=== PATIENT | female | born 1990 | race African-American/Black ===

== ENCOUNTER 2017-08-13 02:49 | Observation (INO) | payer OTHER, MEDICAID ==
[~2017-08-13] VITALS: Ht 165.1 cm; Wt 63.5 kg
[2017-08-13] MEDS ORDERED: TERBUTALINE SULFATE 1MG/ML VIAL SUBCUT PRN (03:45)
[2017-08-13] MEDS ORDERED: LACTATED RINGERS 1,000 ML IV SCH (03:45)
[2017-08-13 03:58] LABS: CLARITY URINE CLEAR (CLEAR); COLOR URINE YELLOW (YELLOW); GLUCOSE URINE NEGATIVE (NEGATIVE); KETONES URINE NEGATIVE (NEGATIVE); LEUKOCYTE ESTERASE URINE 2+ (NEGATIVE); NITRITE URINE NEGATIVE (NEGATIVE); OCCULT BLOOD URINE NEGATIVE (NEGATIVE); PH URINE 8.5 (4.5-8.0); PROTEIN URINE NEGATIVE (NEGATIVE); SPECIFIC GRAVITY URINE 1.007 (1.005-1.030); UROBILINOGEN URINE 0.2 E.U./dL (0.2-1.0)
[2017-08-13] MEDS ORDERED: CEFAZOLIN SODIUM 500MG/VIAL IV ONE (04:45)
[2017-08-13] MEDS ORDERED: CEFAZOLIN 2,000 MG in DEXT 5% WATER 100 ML IV SCH (05:00)
[2017-08-13] MEDS ORDERED: PNV11TAB PO (06:20)
== END 2017-08-13 06:50 | disposition home or self-care (01) ==
LOC: L&D 02:49
PROVIDERS: ADMIT Obstetrics & Gynecology; ATTEND Obstetrics & Gynecology
DX: O26.893 Other specified pregnancy related conditions, third trimester (principal); R10.30 Lower abdominal pain, unspecified; Z3A.33 33 weeks gestation of pregnancy
CPT/HCPCS: 76805; 76818; 81001; 96360; 96361; 96365; 96372; 99281; G0378; J0690; J3105; J7120; J7060